=== PATIENT | male | born 1975 | race American Indian/Alaskan Native ===

== ENCOUNTER 2017-12-27 13:17 | Observation (INO) | payer OTHER ==
[~2017-12-27] VITALS: Ht 167.6 cm; Wt 59.5 kg
[~2017-12-27 13:17] MED LIST: ASPI81CH PO; ATOR20 PO; CARV6.25 PO; CLOP75 PO; Lisinopril2.5 MG PO; Senna8.6 M1 PO
[2017-12-27 13:42] LABS: BASOPHILS ABSOLUTE AUTO 0.06 K/mm3 (0.00-0.23); BASOPHILS PERCENT AUTO 0 % (0-2); EOSINOPHILS ABSOLUTE AUTO 0.03 K/mm3 (0.00-0.68); EOSINOPHILS PERCENT AUTO 0 % (0-6); Hemoglobin 18.5 g/dL (13.5-17.5); IMMATURE GRAN ABSOLUTE AUTO 0.09 K/mm3 (0.00-0.10); IMMATURE GRAN PERCENT AUTO 1 % (0-1); LYMPHOCYTES ABSOLUTE AUTO 1.78 K/mm3 (0.84-5.20); LYMPHOCYTES PERCENT AUTO 13 % (21-46); MONOCYTES ABSOLUTE AUTO 1.08 K/mm3 (0.16-1.47); MONOCYTES PERCENT AUTO 8 % (4-13); Mean Corpuscular HGB 28.4 pg (26.0-34.0); Mean Corpuscular HGB Conc 33.4 g/dL (31.5-36.5); Mean Corpuscular Volume 85 fL (80-100); Mean Platelet Volume 10.5 fL (9.1-12.4); NEUTROPHILS ABSOLUTE AUTO 10.89 K/mm3 (1.96-9.15); NEUTROPHILS PERCENT AUTO 78 % (41-73); Platelet Count 181 K/mm3 (150-400); RDW Coefficient Variation 14.4 % (11.7-14.2); RDW Standard Deviation 42.6 fL (35.1-46.3); Red Blood Cell Count 6.51 M/mm3 (4.30-5.90); White Blood Cell Count 13.93 K/mm3 (4.00-11.30)
[2017-12-27 13:54] LABS: Albumin, Blood 5.7 g/dL (3.4-5.0); Albumin/Globulin Ratio 1.1 (0.8-1.8); Bilirubin, Total 0.9 mg/dL (0.1-1.0); Bun/Creatinine Ratio 12.1 (12.0-20.0); Calcium, Blood 11.4 mg/dL (8.5-10.1); Creatinine, Blood 2.72 mg/dL (0.60-1.20); Globulin, Blood 5.2 g/dL (2.2-4.0); Potassium, Blood 3.6 mmol/L (3.5-5.5); Total Protein, Blood 10.9 g/dL (6.4-8.2)
[2017-12-27 14:07] LABS: Hematocrit 55.4 % (37.0-53.0)
[2017-12-27 16:54] LABS: Phosphorus, Blood 6.6 mg/dL (2.5-4.9)
[2017-12-27 22:28] LABS: Influenza A Negative (NEGATIVE); Influenza B Negative (NEGATIVE)
[2017-12-28 02:11] LABS: Source, Urine Clean Catch
[2017-12-28 02:19] LABS: Bilirubin, Urine Neg (Neg); Blood, Urine Neg (Neg); Glucose Qualitative, Urine Neg (Neg); Ketones, Urine Neg (Neg); Leukocyte Esterase, Urine Neg (Neg); Nitrite, Urine Neg (Neg); Protein, Urine Neg (Neg); Urobilinogen, Urine NORM (Normal)
[2017-12-28 02:29] LABS: Appearance, Urine Clear (Clear); Color, Urine Yellow (P-Yellow)
[2017-12-28 02:30] LABS: U Amphetamine Screen Not Detected; U Barbituate Screen Not Detected; U Benzodiazapine Screen Not Detected; U Buprenorphine Screen Not Detected; U Cannabinoids Screen DETECTED; U Cocaine Screen Not Detected; U Methadone Screen Not Detected; U Methamphetamine Screen Not Detected; U Opiates Screen Not Detected; U Oxycodone Screen Not Detected; U Phencyclidine Screen Not Detected; U Propoxyphene Screen Not Detected
[2017-12-28 04:29] LABS: BASOPHILS ABSOLUTE AUTO 0.05 K/mm3 (0.00-0.23); BASOPHILS PERCENT AUTO 1 % (0-2); EOSINOPHILS PERCENT AUTO 2 % (0-6); Hematocrit 43.9 % (37.0-53.0); Hemoglobin 14.6 g/dL (13.5-17.5); IMMATURE GRAN ABSOLUTE AUTO 0.07 K/mm3 (0.00-0.10); IMMATURE GRAN PERCENT AUTO 1 % (0-1); LYMPHOCYTES ABSOLUTE AUTO 2.07 K/mm3 (0.84-5.20); LYMPHOCYTES PERCENT AUTO 19 % (21-46); MONOCYTES ABSOLUTE AUTO 1.09 K/mm3 (0.16-1.47); MONOCYTES PERCENT AUTO 10 % (4-13); Mean Corpuscular HGB 28.5 pg (26.0-34.0); Mean Corpuscular HGB Conc 33.3 g/dL (31.5-36.5); Mean Corpuscular Volume 86 fL (80-100); Mean Platelet Volume 10.7 fL (9.1-12.4); NEUTROPHILS PERCENT AUTO 68 % (41-73); Platelet Count 158 K/mm3 (150-400); RDW Coefficient Variation 13.9 % (11.7-14.2); RDW Standard Deviation 43.4 fL (35.1-46.3); Red Blood Cell Count 5.13 M/mm3 (4.30-5.90); White Blood Cell Count 10.78 K/mm3 (4.00-11.30)
[2017-12-28 04:49] LABS: Magnesium, Blood 2.4 mg/dL (1.6-2.4); Troponin I <0.015 ng/mL (0.000-0.040)
[2017-12-28 05:01] LABS: Anion Gap 8 mmol/L (6-16); Blood Urea Nitrogen 23 mg/dL (8-24); Bun/Creatinine Ratio 21.7 (12.0-20.0); CO2, Blood 25 mmol/L (21-32); Chloride, Blood 103 mmol/L (98-108); Creatinine, Blood 1.06 mg/dL (0.60-1.20); Glomerular Filtration Rate >60 (60-); Glucose, Blood 106 mg/dL (70-99); Potassium, Blood 3.4 mmol/L (3.5-5.5); Sodium, Blood 136 mmol/L (136-145)
[2017-12-28 05:02] LABS: Calcium, Blood 8.5 mg/dL (8.5-10.1); Phosphorus, Blood 1.9 mg/dL (2.5-4.9)
[2018-07-25] MEDS ORDERED: CLOP75 PO (17:00)
== END 2017-12-28 14:04 | disposition home or self-care (01) ==
LOC: ER 13:17 → MEDS 13:18 → ENPENDDIS 12-28 10:44 → MEDS 12-28 14:04
PROVIDERS: Emergency Medicine; Family Medicine
DX: K52.9 Noninfective gastroenteritis and colitis, unspecified (principal); E86.0 Dehydration; N17.9 Acute kidney failure, unspecified; E87.1 Hypo-osmolality and hyponatremia; E83.39 Other disorders of phosphorus metabolism; R07.89 Other chest pain; I25.10 Atherosclerotic heart disease of native coronary artery without angina pectoris; F12.90 Cannabis use, unspecified, uncomplicated; F10.10 Alcohol abuse, uncomplicated; Z95.1 Presence of aortocoronary bypass graft; Z95.5 Presence of coronary angioplasty implant and graft; Z90.81 Acquired absence of spleen; F17.210 Nicotine dependence, cigarettes, uncomplicated; Z79.82 Long term (current) use of aspirin; Z79.02 Long term (current) use of antithrombotics/antiplatelets; Z79.899 Other long term (current) drug therapy
CPT/HCPCS: 36415; 74018; 74176; 80048; 80053; 81003; 82947; 83605; 83690; 83735; 84100; 84484; 85025; 87804; 96361; 96365; 96366; 96367; 96374; 96375; 99285; C9113; G0008; G0378; J0780; J2405; J3010; J3411; J3475; J7030; J7040; J7042; Q2038

== ENCOUNTER 2019-01-01 18:37 | Emergency (ER) | payer OTHER ==
[~2019-01-01] VITALS: Ht 175.3 cm; Wt 61.2 kg
[2019-01-01] MEDS ORDERED: CLOP75 PO (18:59)
[2019-01-01] MEDS ORDERED: ASPI81CH PO (18:59)
[2019-01-01] MEDS ORDERED: Monodox100 MG PO (19:58)
== END 2019-01-01 20:18 | disposition home or self-care (01) ==
LOC: ER 18:37
DX: L03.115 Cellulitis of right lower limb (principal); Z91.013 Allergy to seafood; Z88.8 Allergy status to other drugs, medicaments and biological substances; I25.2 Old myocardial infarction; F17.200 Nicotine dependence, unspecified, uncomplicated; Z79.899 Other long term (current) drug therapy; Z79.82 Long term (current) use of aspirin
CPT/HCPCS: 99282

== ENCOUNTER 2019-05-20 18:44 | Emergency (ER) | payer OTHER ==
[~2019-05-20] VITALS: Ht 175.3 cm; Wt 59.0 kg
[~2019-05-20 18:44] MED LIST changes: +Monodox100 MG PO
[2019-05-20] MEDS ORDERED: TOBRADEX ST EYE5 ML BOTHEYES (19:04)
== END 2019-05-20 19:13 | disposition home or self-care (01) ==
LOC: ER 18:44
DX: H10.9 Unspecified conjunctivitis (principal); I25.10 Atherosclerotic heart disease of native coronary artery without angina pectoris; Z95.1 Presence of aortocoronary bypass graft; F17.200 Nicotine dependence, unspecified, uncomplicated
CPT/HCPCS: 99282

== ENCOUNTER 2019-06-12 08:44 | Emergency (ER) | payer OTHER ==
[~2019-06-12] VITALS: Ht 175.3 cm; Wt 59.0 kg
[~2019-06-12 08:44] MED LIST changes: +TOBRADEX ST EYE5 ML BOTHEYES
== END 2019-06-12 10:23 | disposition home or self-care (01) ==
LOC: ER 08:44
DX: K40.90 Unilateral inguinal hernia, without obstruction or gangrene, not specified as recurrent (principal); Z91.013 Allergy to seafood; Z88.8 Allergy status to other drugs, medicaments and biological substances; Z79.82 Long term (current) use of aspirin; Z79.899 Other long term (current) drug therapy; F17.200 Nicotine dependence, unspecified, uncomplicated
CPT/HCPCS: 76857; 99284-25

== ENCOUNTER 2019-06-26 13:19 | Emergency (ER) | payer OTHER ==
[~2019-06-26] VITALS: Ht 175.3 cm; Wt 56.7 kg
[2019-06-26] MEDS ORDERED: CEPH500 PO (13:27)
[2019-06-26] MEDS ORDERED: Bactrim Ds Tab1 EACH PO (13:27)
== END 2019-06-26 13:32 | disposition home or self-care (01) ==
LOC: ER 13:19
DX: L02.415 Cutaneous abscess of right lower limb (principal); L02.411 Cutaneous abscess of right axilla; Z88.8 Allergy status to other drugs, medicaments and biological substances; Z91.013 Allergy to seafood; Z79.899 Other long term (current) drug therapy; Z79.82 Long term (current) use of aspirin; I25.2 Old myocardial infarction; F17.210 Nicotine dependence, cigarettes, uncomplicated
CPT/HCPCS: 99283

== ENCOUNTER 2019-08-03 20:30 | Emergency (ER) | payer OTHER ==
[~2019-08-03] VITALS: Ht 175.3 cm; Wt 56.7 kg
[~2019-08-03 20:30] MED LIST changes: +Bactrim Ds Tab1 EACH PO; +CEPH500 PO
[2019-08-03] MEDS ORDERED: ACETAMINOPHEN500 MG PO (22:29)
== END 2019-08-03 22:48 | disposition home or self-care (01) ==
LOC: ER 20:30
DX: S62.332A Displaced fracture of neck of third metacarpal bone, right hand, initial encounter for closed fracture (principal); I25.2 Old myocardial infarction; F17.210 Nicotine dependence, cigarettes, uncomplicated; Z91.013 Allergy to seafood; Z88.8 Allergy status to other drugs, medicaments and biological substances; Z79.899 Other long term (current) drug therapy; Z79.02 Long term (current) use of antithrombotics/antiplatelets; Z79.82 Long term (current) use of aspirin; W19.XXXA Unspecified fall, initial encounter
CPT/HCPCS: 26605; 73130; 99283-25

== ENCOUNTER 2019-10-02 10:52 | Inpatient (IN) | payer OTHER ==
[~2019-10-02] VITALS: Ht 175.3 cm; Wt 61.0 kg
[~2019-10-02 10:52] MED LIST changes: +ACETAMINOPHEN500 MG PO
[2019-10-02 11:26] LABS: BASOPHILS ABSOLUTE AUTO 0.05 K/mm3 (0.00-0.23); BASOPHILS PERCENT AUTO 1 % (0-2); EOSINOPHILS ABSOLUTE AUTO 0.39 K/mm3 (0.00-0.68); EOSINOPHILS PERCENT AUTO 4 % (0-6); Hematocrit 44.5 % (37.0-53.0); Hemoglobin 13.9 g/dL (13.5-17.5); IMMATURE GRAN ABSOLUTE AUTO 0.03 K/mm3 (0.00-0.10); IMMATURE GRAN PERCENT AUTO 0 % (0-1); LYMPHOCYTES ABSOLUTE AUTO 2.04 K/mm3 (0.84-5.20); LYMPHOCYTES PERCENT AUTO 21 % (21-46); MONOCYTES PERCENT AUTO 9 % (4-13); Mean Corpuscular HGB 28.8 pg (26.0-34.0); Mean Corpuscular HGB Conc 31.2 g/dL (31.5-36.5); Mean Corpuscular Volume 92 fL (80-100); Mean Platelet Volume 9.5 fL (9.1-12.4); NEUTROPHILS ABSOLUTE AUTO 6.34 K/mm3 (1.96-9.15); NEUTROPHILS PERCENT AUTO 65 % (41-73); Platelet Count 153 K/mm3 (150-400); RDW Coefficient Variation 14.6 % (11.7-14.2); RDW Standard Deviation 49.4 fL (35.1-46.3); Red Blood Cell Count 4.82 M/mm3 (4.30-5.90); White Blood Cell Count 9.75 K/mm3 (4.00-11.30)
[2019-10-02 11:39] LABS: International Normalized Ratio 0.89; Prothrombin Time Results 9.5 Sec (9.7-11.5)
[2019-10-02 11:49] LABS: Alanine Aminotransfer (ALT/SGP 108 U/L (12-78); Albumin, Blood 3.6 g/dL (3.4-5.0); Alk Phos 152 U/L (50-136); Anion Gap 5 mmol/L (6-16); Aspartate Aminotrans (AST/SGOT 172 U/L (12-37); Bilirubin, Total 0.1 mg/dL (0.1-1.0); Blood Urea Nitrogen 18 mg/dL (8-24); Bun/Creatinine Ratio 21.4 (12.0-20.0); CO2, Blood 29 mmol/L (21-32); Calcium, Blood 8.7 mg/dL (8.5-10.1); Chloride, Blood 108 mmol/L (98-108); Creatinine, Blood 0.84 mg/dL (0.60-1.20); Globulin, Blood 3.6 g/dL (2.2-4.0); Glomerular Filtration Rate >60 (60-); Glucose, Blood 102 mg/dL (70-99); Potassium, Blood 3.7 mmol/L (3.5-5.5); Sodium, Blood 142 mmol/L (136-145); Total Protein, Blood 7.2 g/dL (6.4-8.2)
--- NOTE | 2019-10-02 13:51 | NUR ---
ADMISSION- PT ADMITTED TO ICU 15 FROM [employer] IN BED. SLEEPING, AWAKENS EASILY. ABLE TO ANSWER BRIEF QUESTIONS. DENIES ANY PAIN OR SOB. RESPIRATIONS UNLABORED, NO DISTRESS. VSS. SKIN W/D. SINUS RHYTHM WITH FREQUENT PACS, PVCS. LUNGS CLEAR. PIV X 2 INTACT, NS STARTED AT 200 CC/HR PER ORDERS. RIGHT RADIAL SITE WITH ARMBOARD, TR BAND WITH 13 CC AIR, SITE INTACT, SMALL AMOUNT PUFFINESS, NONTENDER. CMS ADEQUATE, CAP REFILL < 3 SECONDS. SATURATION PROBE TO RIGHT THUMB. COLOR NORMAL, TEMPERATURE WARM. REVIEWED PRECAUTIONS, STATES UNDERSTANDING. BEDSIDE ECHO STARTED. LOADED WITH BRILINTA IN ER.
--- NOTE | 2019-10-02 14:22 | NUR ---
PT DENIES COMPLAINTS. FREQUENT CHECKS TO RIGHT WRIST. NSR WITH PVC AND PACS. CONTINUE TO MONITOR
--- NOTE | 2019-10-02 14:24 | NUR ---
Echocardiogram completed
--- NOTE | 2019-10-02 15:03 | NUR ---
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 GREEN LEAF SUBSTANCE DISCARDED WITH SECURITY PER DRUG POLICY
--- NOTE | 2019-10-02 15:04 | NUR ---
PT WITH STABLE VS. SLEEPING WITHOUT COMPLAINTS
[2019-10-02 15:54] LABS: Source, Urine Catheter
[2019-10-02 15:57] LABS: Bilirubin, Urine Neg (Neg); Blood, Urine Neg (Neg); Glucose Qualitative, Urine Neg (Neg); Ketones, Urine Neg (Neg); Leukocyte Esterase, Urine Neg (Neg); Nitrite, Urine Neg (Neg); Protein, Urine Neg (Neg); Specific Gravity, Urine 1.015 (1.003-1.022); Urobilinogen, Urine 1+ (Normal)
[2019-10-02 16:13] LABS: Appearance, Urine Clear (Clear); Color, Urine Yellow (P-Yellow)
--- NOTE | 2019-10-02 16:21 | NUR ---
PT AWAKE, SITTING UP IN BED. EATING SMALL AMOUNT. NSR WITH PVCS. RIGHT RADIAL TR BAND DI.
[2019-10-02 16:31] LABS: U Amphetamine Screen Not Detected; U Barbituate Screen Not Detected; U Benzodiazapine Screen Not Detected; U Buprenorphine Screen Not Detected; U Cannabinoids Screen DETECTED; U Cocaine Screen Not Detected; U Methadone Screen Not Detected; U Methamphetamine Screen Not Detected; U Opiates Screen Not Detected; U Oxycodone Screen Not Detected; U Phencyclidine Screen Not Detected; U Propoxyphene Screen Not Detected
--- NOTE | 2019-10-02 18:32 | NUR ---
TR BAND REMOVED PER PROTOCOL, NO BLEEDING, NO HEMATOMA. CMS CHECKS NORMAL. HANDS WARM, EQUAL TEMP. EXPLAINED PRECAUTIONS, ARMBOARD ON. BP STABLE. DOES HAVE ECTOPY, ATRIAL VS SINUS RHYTHM WITH MULTIPLE PACS, PVCS. DENIES ANY PALPATATIONS. UPSET REGARDING PHONE CALL FROM BROTHER. EMOTIONAL SUPPORT GIVEN.
--- NOTE | 2019-10-02 20:45 | NUR ---
ASSUMPTION OF CARE PT IS RESTING QUIETLY IN BED, DENIES ANY PAIN OR DISCOMFORT. IVs ARE PATENT, DRESSING C/D/I. RIGHT RADIAL PUNCTURE SITE DRESSING WNL, NO BLEEING, HEMATOMA, PAIN OR DISCOMFORT, RADIAL PULSE AND CAP REFILL WNL. TELE IS SHOWING ACCELERATED PVCs. VITALS STABLE. WILL CONTINUE TO MONITOR THROUGHOUT SHIFT. YADIEL MYERS
[2019-10-03 03:27] LABS: Hematocrit 42.2 % (37.0-53.0); Hemoglobin 13.4 g/dL (13.5-17.5); Mean Corpuscular HGB 29.2 pg (26.0-34.0); Mean Corpuscular HGB Conc 31.8 g/dL (31.5-36.5); Mean Corpuscular Volume 92 fL (80-100); Mean Platelet Volume 9.6 fL (9.1-12.4); Platelet Count 128 K/mm3 (150-400); RDW Coefficient Variation 14.6 % (11.7-14.2); RDW Standard Deviation 50.1 fL (35.1-46.3); Red Blood Cell Count 4.59 M/mm3 (4.30-5.90); White Blood Cell Count 8.97 K/mm3 (4.00-11.30)
[2019-10-03 03:50] LABS: Alanine Aminotransfer (ALT/SGP 186 U/L (12-78); Albumin, Blood 3.1 g/dL (3.4-5.0); Albumin/Globulin Ratio 0.9 (0.8-1.8); Alk Phos 106 U/L (50-136); Anion Gap 6 mmol/L (6-16); Aspartate Aminotrans (AST/SGOT 187 U/L (12-37); Bilirubin, Total 0.4 mg/dL (0.1-1.0); Blood Urea Nitrogen 10 mg/dL (8-24); Bun/Creatinine Ratio 13.3 (12.0-20.0); CHOL/HDL RATIO 2.5; CO2, Blood 26 mmol/L (21-32); Calcium, Blood 8.5 mg/dL (8.5-10.1); Chloride, Blood 108 mmol/L (98-108); Cholesterol 194 mg/dL (50-200); Creatinine, Blood 0.75 mg/dL (0.60-1.20); Globulin, Blood 3.3 g/dL (2.2-4.0); Glomerular Filtration Rate >60 (60-); Glucose, Blood 96 mg/dL (70-99); HDL Cholesterol 78 mg/dL (>39); LDL/HDL RATIO 1.3; Low Density Lipoprotein Chol 101 mg/dL (0-110); Potassium, Blood 3.7 mmol/L (3.5-5.5); Sodium, Blood 140 mmol/L (136-145); Total Protein, Blood 6.4 g/dL (6.4-8.2); Triglycerides 77 mg/dL (30-160); Very Low Density Lipoprot Chol 15 mg/dL (6-32)
--- NOTE | 2019-10-03 06:15 | NUR ---
PATIENT HAS BEEN CALM, QUIET, RESTING WELL THROUGHOUT SHIFT. NO IV FLUIDS RUNNING. RIGHT RADIAL PUNCTURE - NO SIGNS OF BLEEDING, SWELLING, HEMATOMA, RADIAL PULSE IS STRONG AND CAP REFILL IS UNDER 3 SECONDS. PT HAS BEEN SHOWING OCCASSIONAL ACCELERATED PVCs. OCCASSIONAL PACs. PT TROPONIN LEVEL @ 2100 WAS 20. TROPONIN @ 0300 AT 12.2. PATIENT HAS DENIED PAIN AND DISCOMFORT THROUGHOUT NIGHT. VITALS ARE STABLE. WILL CONTINUE TO MONITOR THROUGHOUT REST OF SHIFT. YADIEL MYERS
--- NOTE | 2019-10-03 07:21 | NUR ---
ASSUMED CARE: RECEIVED REPORT FROM NOC RN. PT APPEARS TO BE SLEEPING WITH EVEN CHEST RISE AND FALL UPON ENTERING THE ROOM. HEART MONITOR IS NOTED TO BE SHOWING FREQUENT AND PROLONGED PVC'S WITH AN EVEN RATE IN THE 70-80'S. NO ACUTE DISTRESS NOTED. WILL CONTINUE TO MONITOR AND ASSESS FURTHER.
--- NOTE | 2019-10-03 15:53 | NUR ---
TRANSFER TO MEDICAL: PT TRANSFERED TO MEDICAL ROOM 330 BY WHEELCHAIR
--- NOTE | 2019-10-03 16:36 | NUR ---
Pt ref shower in ICU. Said he was told he will be moving rooms soon and would like to take a shower in his own room. RN notified.
--- NOTE | 2019-10-04 05:42 | NUR ---
SHIFT SUMMARY NO ACUTE EVENTS OVERNIGHT.PT IS A&OX4, INDEPENDENT IN RM. DENIES ANY CP OR DISCOMFORT. S/P STENT PLACEMENT, R RADIAL ACCESS SITE, ARM BOARD IN PLACE. SITE C/D/I. TELE IN PLACE, NSR @ 76 BPM. NICOTINE PATCH ORDERED AND APPLIED TO R ARM. RESP E/U ON RA. WILL CONT TO MONITOR AND PROVIDE CARE UNTIL PRESUMED BY ONCOMING RN,
[2019-10-04] MEDS ORDERED: NITR.4SL SL (09:25)
[2019-10-04] MEDS ORDERED: METO25 PO (09:25)
[2019-10-04] MEDS ORDERED: PRAVASTATIN SOD10 MG PO (09:26)
--- NOTE | 2019-10-04 13:58 | NUR ---
PATIENT DISCHARGE: PATIENT DISCHARGED TO HOME THIS SHIFT. MEDICATION RECONCILIATION COMPLETED; MED LIST FAXED TO [facility]. DISCHARGE EDUCATION COMPLETED WITH PATIENT. PATIENT TRANSPORTED TO EXIT BY [facility] STAFF WITH WHEELCHAIR AT 1355. PATIENT DEPARTED [facility] VIA BUS.
== END 2019-10-04 13:58 | disposition home or self-care (01) | DRG 247 ==
LOC: ER 10:52 → ICUW 11:35 → MEDS 10-03 15:35 → ENPENDDIS 10-04 11:07 → MEDS 10-04 13:58
PROVIDERS: Emergency Medicine; Internal Medicine Interventional Cardiology; ADMIT Internal Medicine Interventional Cardiology
PROC: B2111ZZ Fluoroscopy of Multiple Coronary Arteries using Low Osmolar Contrast (ICD-10-PCS; principal; 2019-10-02)
PROC: 027034Z Dilation of Coronary Artery, One Artery with Drug-eluting Intraluminal Device, Percutaneous Approach (ICD-10-PCS; 2019-10-02)
PROC: B240ZZ3 Ultrasonography of Single Coronary Artery, Intravascular (ICD-10-PCS; 2019-10-02)
DX: I21.11 ST elevation (STEMI) myocardial infarction involving right coronary artery (principal); I25.10 Atherosclerotic heart disease of native coronary artery without angina pectoris; I25.2 Old myocardial infarction; F17.200 Nicotine dependence, unspecified, uncomplicated; G40.909 Epilepsy, unspecified, not intractable, without status epilepticus; Z59.0 Homelessness
CPT/HCPCS: 36415; 71045; 76937; 80053; 80061; 81003; 83036; 83880; 84484; 85025; 85027; 85347; 85610; 92978; 92979; 93005; 93010; 93306; 93454; 99152; 99153; 99285-25; C1725; C1753; C1769; C1874; C1887; C1894; C9606; J1200; J1644; J2250; J3010; J7030; J7040; Q9967

== ENCOUNTER 2020-01-25 03:13 | Emergency (ER) | payer OTHER ==
[~2020-01-25] VITALS: Ht 175.3 cm; Wt 56.7 kg
[~2020-01-25 03:13] MED LIST changes: +METO25 PO; +NITR.4SL SL; +PRAVASTATIN SOD10 MG PO
== END 2020-01-25 03:37 | disposition home or self-care (01) ==
LOC: ER 03:13
DX: T69.022A Immersion foot, left foot, initial encounter (principal); T69.021A Immersion foot, right foot, initial encounter; F17.210 Nicotine dependence, cigarettes, uncomplicated; I25.2 Old myocardial infarction

== ENCOUNTER 2020-05-10 13:32 | Inpatient (IN) | payer OTHER ==
[~2020-05-10] VITALS: Ht 175.3 cm; Wt 66.4 kg
[~2020-05-10 13:32] MED LIST changes: -NITR.4SL SL; +Permethrin60 GM TOP; +Vibramycin100 MG PO
[2020-05-10 14:20] LABS: BASOPHILS ABSOLUTE AUTO 0.07 K/mm3 (0.00-0.23); BASOPHILS PERCENT AUTO 1 % (0-2); EOSINOPHILS ABSOLUTE AUTO 0.24 K/mm3 (0.00-0.68); EOSINOPHILS PERCENT AUTO 3 % (0-6); Hematocrit 44.8 % (37.0-53.0); Hemoglobin 14.1 g/dL (13.5-17.5); IMMATURE GRAN ABSOLUTE AUTO 0.04 K/mm3 (0.00-0.10); IMMATURE GRAN PERCENT AUTO 1 % (0-1); LYMPHOCYTES ABSOLUTE AUTO 1.45 K/mm3 (0.84-5.20); LYMPHOCYTES PERCENT AUTO 18 % (21-46); MONOCYTES ABSOLUTE AUTO 0.57 K/mm3 (0.16-1.47); MONOCYTES PERCENT AUTO 7 % (4-13); Mean Corpuscular HGB 28.1 pg (26.0-34.0); Mean Corpuscular HGB Conc 31.5 g/dL (31.5-36.5); Mean Corpuscular Volume 89 fL (80-100); NEUTROPHILS ABSOLUTE AUTO 5.76 K/mm3 (1.96-9.15); NEUTROPHILS PERCENT AUTO 71 % (41-73); Platelet Count 150 K/mm3 (150-400); RDW Coefficient Variation 14.7 % (11.7-14.2); Red Blood Cell Count 5.02 M/mm3 (4.30-5.90); White Blood Cell Count 8.13 K/mm3 (4.00-11.30)
[2020-05-10 14:39] LABS: Alanine Aminotransfer (ALT/SGP 34 U/L (12-78); Albumin, Blood 3.6 g/dL (3.4-5.0); Albumin/Globulin Ratio 0.9 (0.8-1.8); Alk Phos 92 U/L (50-136); Anion Gap 7 mmol/L (6-16); Aspartate Aminotrans (AST/SGOT 36 U/L (12-37); Bilirubin, Total 0.5 mg/dL (0.1-1.0); Blood Urea Nitrogen 16 mg/dL (8-24); Bun/Creatinine Ratio 16.4 (12.0-20.0); CO2, Blood 26 mmol/L (21-32); Calcium, Blood 8.7 mg/dL (8.5-10.1); Chloride, Blood 108 mmol/L (98-108); Creatinine, Blood 0.98 mg/dL (0.60-1.20); Globulin, Blood 3.9 g/dL (2.2-4.0); Glomerular Filtration Rate >60 (60-); Glucose, Blood 89 mg/dL (70-99); Potassium, Blood 3.9 mmol/L (3.5-5.5); Sodium, Blood 141 mmol/L (136-145); Total Protein, Blood 7.5 g/dL (6.4-8.2)
[2020-05-10] MEDS ORDERED: SUBOXONE 8 MG-1 EACH SL (15:15)
[2020-05-10 16:08] LABS: International Normalized Ratio 0.98; Prothrombin Time Results 10.5 Sec (9.7-11.5)
[2020-05-10] MEDS ORDERED: Aspir 8181 MG PO (16:44)
[2020-05-10] MEDS ORDERED: NITR.4SL SL (16:44)
--- NOTE | 2020-05-10 18:55 | NUR ---
Echocardiogram completed.
[2020-05-11 06:51] LABS: BASOPHILS ABSOLUTE AUTO 0.06 K/mm3 (0.00-0.23); BASOPHILS PERCENT AUTO 1 % (0-2); EOSINOPHILS ABSOLUTE AUTO 0.38 K/mm3 (0.00-0.68); EOSINOPHILS PERCENT AUTO 5 % (0-6); Hematocrit 40.5 % (37.0-53.0); Hemoglobin 13.1 g/dL (13.5-17.5); IMMATURE GRAN ABSOLUTE AUTO 0.01 K/mm3 (0.00-0.10); IMMATURE GRAN PERCENT AUTO 0 % (0-1); LYMPHOCYTES ABSOLUTE AUTO 1.62 K/mm3 (0.84-5.20); LYMPHOCYTES PERCENT AUTO 20 % (21-46); MONOCYTES PERCENT AUTO 7 % (4-13); Mean Corpuscular HGB 28.7 pg (26.0-34.0); Mean Corpuscular HGB Conc 32.3 g/dL (31.5-36.5); Mean Corpuscular Volume 89 fL (80-100); Mean Platelet Volume 10.1 fL (9.1-12.4); NEUTROPHILS ABSOLUTE AUTO 5.52 K/mm3 (1.96-9.15); NEUTROPHILS PERCENT AUTO 68 % (41-73); Platelet Count 136 K/mm3 (150-400); RDW Coefficient Variation 14.7 % (11.7-14.2); Red Blood Cell Count 4.56 M/mm3 (4.30-5.90); White Blood Cell Count 8.19 K/mm3 (4.00-11.30)
[2020-05-11 07:04] LABS: International Normalized Ratio 0.99; Prothrombin Time Results 10.6 Sec (9.7-11.5)
[2020-05-11 07:11] LABS: Alanine Aminotransfer (ALT/SGP 27 U/L (12-78); Albumin, Blood 2.9 g/dL (3.4-5.0); Albumin/Globulin Ratio 0.9 (0.8-1.8); Alk Phos 72 U/L (50-136); Anion Gap 7 mmol/L (6-16); Aspartate Aminotrans (AST/SGOT 28 U/L (12-37); Bilirubin, Total 0.3 mg/dL (0.1-1.0); Blood Urea Nitrogen 14 mg/dL (8-24); Bun/Creatinine Ratio 16.6 (12.0-20.0); CO2, Blood 23 mmol/L (21-32); Calcium, Blood 7.9 mg/dL (8.5-10.1); Chloride, Blood 111 mmol/L (98-108); Creatinine, Blood 0.84 mg/dL (0.60-1.20); Globulin, Blood 3.3 g/dL (2.2-4.0); Glomerular Filtration Rate >60 (60-); Glucose, Blood 88 mg/dL (70-99); Potassium, Blood 3.5 mmol/L (3.5-5.5); Sodium, Blood 141 mmol/L (136-145); Total Protein, Blood 6.2 g/dL (6.4-8.2)
--- NOTE | 2020-05-11 07:14 | NUR ---
SHIFT SUMMARY PATIENT PLEASENT THROUGHOUT THE NIGHT, PATIENT APPEARED TO ENJOY TAKING AND ENTERACTING WITH STAFF. PATIENT APPEARED TO SLEEP WELL THROUGHOUT THE NIGHT LAST NIGHT WITH NO COMPLAINT SO CHEST PAIN. HEPARIN GTT RUNNING PER ORDERS. REPORT GIVEN TO ONCOMING RN.
--- NOTE | 2020-05-11 07:30 | NUR ---
Received report from Shadi SENIOR. Patient sleeping and awakens to verbal stimuli. Allowing to sleep awaiting going to [facility]. VS done and patient continues to sleep. He has 20ga IV RFA dressing intact and site WNL's and infusing heparin at5 15 units/kg/hr. and NS at 75ml/hr. MAEW. He is on RA and sats low to mid 90%'s.
--- NOTE | 2020-05-11 09:30 | NUR ---
Chemistry Specialist here to take patient, Heparin stopped and NS as well.
--- NOTE | 2020-05-11 12:37 | NUR ---
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 Patient is upset that we have not fed him post procedure. CBG 80's and got tray to give patient as he was wondering [address] complaing about not having food yet and stated he was not breathing well as he was upset. Placed 3L O2 via NC and prior to O2 was 100% sats. He is curently back in bed eating lunch and feels a little better. VSS, See EMR. We are awaiing orders for transfer to [facility].
--- NOTE | 2020-05-11 15:15 | NUR ---
[facility] ambulance arrived to order picker patient, he refused to go until we assured him that he would have transportation back to [place] and verified with [facility] that he qualifies to get ride back to [place]. He finally agreed to go and kept on 3L O2 even though he states just makes feel better and sats upper 90%'s. Called report to Mireya at [facility] [id number].
== END 2020-05-11 15:15 | disposition short-term general hospital (02) | DRG 250 ==
LOC: ER 13:32 → PCU 16:05
PROVIDERS: Nurse Practitioner Acute Care; Physician Assistant; ADMIT Internal Medicine
PROC: 4A023N7 Measurement of Cardiac Sampling and Pressure, Left Heart, Percutaneous Approach (ICD-10-PCS; principal; 2020-05-11)
PROC: 02703ZZ Dilation of Coronary Artery, One Artery, Percutaneous Approach (ICD-10-PCS; 2020-05-11)
PROC: B2111ZZ Fluoroscopy of Multiple Coronary Arteries using Low Osmolar Contrast (ICD-10-PCS; 2020-05-11)
DX: T82.855A Stenosis of coronary artery stent, initial encounter (principal); I21.4 Non-ST elevation (NSTEMI) myocardial infarction; Z79.82 Long term (current) use of aspirin; I25.10 Atherosclerotic heart disease of native coronary artery without angina pectoris; I25.2 Old myocardial infarction; Z95.5 Presence of coronary angioplasty implant and graft; F17.210 Nicotine dependence, cigarettes, uncomplicated; F15.10 Other stimulant abuse, uncomplicated; Z20.828 Contact with and (suspected) exposure to other viral communicable diseases; I10 Essential (primary) hypertension
CPT/HCPCS: 36415; 71046; 76937; 80053; 82947; 83735; 83880; 84484; 85025; 85347; 85610; 85730; 92920; 92921; 92978; 93005; 93010; 93306; 93458; 96365; 96376; 99152; 99153; 99285-25; A9270-GY; C1725; C1753; C1769; C1887; C1894; J1644; J2250; J3010; J7030; Q9967; U0002